=== PATIENT | female | born 1945 | race Hispanic/Latino ===

== ENCOUNTER 2018-02-06 23:15 | Emergency (ER) | payer MEDICARE ==
[2018-02-06 23:31] VITALS: O2SAT 96
[2018-02-07] MEDS ORDERED: DiphenhydrAMINE 50 mg/ml Inj IM STA (02:17)
--- NOTE | 2018-02-07 02:19 | C.PDOC ---
History Of Present Illness 72 y/o female presents to the ED with rash for 1 day. Patient was recently given Clindamycin for unspecified dental infection. Today she notes generalized itchy rash involving chest, back, both arms and legs. Patient has no prior knowledge of allergies to any medications. Denies any tongue/throat swelling or difficulty breathing. Time Seen by Provider: 02/07/18 02:09 Chief Complaint (Nursing): Abnormal Skin Integrity History Per: Patient History/Exam Limitations: no limitations Onset/Duration Of Symptoms: Days (x1) Current Symptoms Are (Timing): Still Present Quality Of Symptoms: Itching Past Medical History Reviewed: Historical Data, Nursing Documentation, Vital Signs Vital Signs: Last Vital Signs Temp 98.0 F 02/06/18 23:26 Pulse 97 H 02/06/18 23:26 Resp 18 02/06/18 23:26 BP 146/83 02/06/18 23:26 Pulse Ox 96 02/07/18 02:25 - Medical History PMH: HTN Surgical History: Cholecystectomy - [facility] Procedures INJECT/INFUSE NEC (07/13/06) Family History: States: No Known Family Hx - Social History Hx Tobacco Use: Yes Hx Alcohol Use: No Hx Substance Use: No - Immunization History Hx Tetanus Toxoid Vaccination: No Hx Influenza Vaccination: Yes Hx Pneumococcal Vaccination: No Review Of Systems Except As Marked, All Systems Reviewed And Found Negative. ENT: Negative for: Mouth Swelling, Throat Swelling Respiratory: Negative for: Shortness of Breath Skin: Positive for: Rash Physical Exam - Physical Exam Appears: Non-toxic, No Acute Distress Skin: Warm, Dry, Rash (Maculopapular generalized, blanching, erythematous rash involving the chest, back, and bilateral upper and lower extremities, including webbed spaces of both hands but not palms) Head: Atraumatic, Normacephalic Eye(s): bilateral: Normal Inspection, PERRL, EOMI Nose: Normal Oral Mucosa: Moist Tongue: Normal Appearing, No Swelling Throat: Normal, No Erythema, No Exudate, Other (airway is patent) Neck: Normal ROM, Supple Cardiovascular: Rhythm Regular, Other (S1,S2 are wnl) Respiratory: Normal Breath Sounds, No Rales, No Rhonchi, No Wheezing Gastrointestinal/Abdominal: Soft, No Tenderness Extremity: Bilateral: Atraumatic, Normal ROM Neurological/Psych: Oriented x3, Normal Speech, Normal Cranial Nerves, No Other (focal deficits) ED Course And Treatment O2 Sat by Pulse Oximetry: 96 (RA) Pulse Ox Interpretation: Normal Medical Decision Making Medical Decision Making: Impression: Allergic reaction Plan: * Benadryl 25 mg IM * Pepcid 20 mg PO * Prednisone 60 mg PO Instructed patient to stop taking Clinda. Will d/c with Benadryl, Pepcid, and Prednisone prescriptions. Patient advised to follow up with dentist without fail. Disposition Counseled Patient/Family Regarding: Diagnosis, Need For Followup, Rx Given - Disposition Referrals: [facility] [Outside] Disposition: HOME/ ROUTINE Disposition Time: 02:22 Condition: GOOD Prescriptions: DiphenhydrAMINE [Diphenhydramine HCl] 12.5 mg PO TID PRN #15 udc PRN Reason: Itching / Pruritus Famotidine [Pepcid] 20 mg PO DAILY #5 tab predniSONE [predniSONE Tab] 20 mg PO DAILY #5 tab Instructions: Adverse Drug Reactions, Adult (DC) Forms: [employer] (Korean) - POA Present On Arrival: None - Clinical Impression Clinical Impression: Allergic reaction caused by a drug - Scribe Statement The provider has reviewed the documentation as recorded by the Scribe (Sendy Reyes) Provider Attestation: All medical record entries made by the Scribe were at my direction and personally dictated by me. I have reviewed the chart and agree that the record accurately reflects my personal performance of the history, physical exam, medical decision making, and the department course for this patient. I have also personally directed, reviewed, and agree with the discharge instructions and disposition.
[2018-02-07] MEDS ORDERED: DiphenhydrAMINE 50 mg/ml Inj ONE (02:22)
[2018-02-07 02:37] VITALS: BP 162/72; PULSE 80; RESP 20; TEMP 98.2
== END 2018-02-07 02:34 | disposition home or self-care (01) ==
LOC: C.ER 23:15
DX: L27.0 Generalized skin eruption due to drugs and medicaments taken internally (principal); T36.8X5A Adverse effect of other systemic antibiotics, initial encounter
CPT/HCPCS: 96372; 99284; J1200